=== PATIENT | male | born 1955 | race Caucasian/White ===

== ENCOUNTER → 2018-01-04 | Day surgery (SDC) | payer MEDICARE, MEDICAID ==
[~2018-01-04] MED LIST: LIDOCAINE HCL 1% 20ML VIAL (Pyxis) INJ ONE; SODIUM BICARBONATE 4% (2.4MEQ) 5ML VIAL IV ONE
== END | disposition home or self-care (01) ==
LOC: RAD 12:51
PROVIDERS: ATTEND Internal Medicine Endocrinology, Diabetes & Metabolism
DX: E07.9 Disorder of thyroid, unspecified (principal)
CPT/HCPCS: 10022; 76942; 88172; 88173; J3490

== ENCOUNTER → 2019-01-31 | Day surgery (SDC) | payer MEDICARE, MEDICAID | END | disposition home or self-care (01) | LOC: RAD 11:07 | PROVIDERS: ATTEND Internal Medicine Endocrinology, Diabetes & Metabolism | DX: E04.2 Nontoxic multinodular goiter (principal); Z79.899 Other long term (current) drug therapy | CPT/HCPCS: 10005; 10006; 88172; 88173; J3490 ==

== ENCOUNTER → 2020-11-28 | Outpatient (CLI) | payer MEDICARE, MEDICAID | END | disposition home or self-care (01) | LOC: NM 08:44 | PROVIDERS: ATTEND Internal Medicine Endocrinology, Diabetes & Metabolism | DX: E04.9 Nontoxic goiter, unspecified (principal) | CPT/HCPCS: 78014; A9516 ==

== ENCOUNTER 2021-09-05 18:17 | Inpatient (IN) | payer MEDICARE, MEDICAID ==
[~2021-09-05] VITALS: Ht 182.9 cm; Wt 113.4 kg
[2021-09-05] MEDS ORDERED: ALLO300T2 PO (18:39)
[2021-09-05] MEDS ORDERED: PRAZ1CAP5 PO (18:39)
[2021-09-05] MEDS ORDERED: NALO25TA4 PO (18:39)
[2021-09-05] MEDS ORDERED: ICOS1CAP PO (18:39)
[2021-09-05] MEDS ORDERED: ZOLPIDEM (18:39)
[2021-09-05] MEDS ORDERED: SERT-422 PO (18:39)
[2021-09-05] MEDS ORDERED: POTA-79 PO (18:39)
[2021-09-05] MEDS ORDERED: HYDR-4009 PO (18:39)
[2021-09-05] MEDS ORDERED: NEBI20TA2 PO (18:39)
[2021-09-05] MEDS ORDERED: FLUT16SP15 (18:39)
[2021-09-05] MEDS ORDERED: SERT25TA74 PO (18:39)
[2021-09-05] MEDS ORDERED: TADA20TA42 PO (18:39)
[2021-09-05] MEDS ORDERED: COLB (18:39)
[2021-09-05] MEDS ORDERED: DICY20TA2 PO (18:39)
[2021-09-05] MEDS ORDERED: PANT20TA17 PO (18:39)
[2021-09-05] MEDS ORDERED: FURO40TA5 PO (18:39)
[2021-09-05 23:36] LABS: BASOPHILS % 0.6 % (0.0-2.0); EOSINOPHILS % 1.9 % (0.0-5.0); HEMATOCRIT. 45.5 % (42.0-52.0); HEMOGLOBIN. 15.5 g/dL (14.0-18.0); LYMPHOCYTES % 39.9 % (20.0-50.0); MEAN CORPUSCULAR HEMOGLOBIN 31.4 pg (28.0-32.0); MEAN CORPUSCULAR VOLUME 91.9 fL (80.0-94.0); MEAN PLATELET VOLUME 9.5 fl (7.4-10.4); MONOCYTES % 7.8 % (2.0-8.0); NEUTROPHILS % 49.8 % (40.0-76.0); PLATELET 229 x1000/uL (130-400); RED BLOOD CELL COUNT 4.95 mill/uL (4.7-6.1); RED CELL DISTRIBUTION WIDTH 13.7 % (11.6-14.6)
[2021-09-05 23:50] LABS: CHLORIDE 107 mEq/L (98-107)
[2021-09-05 23:59] LABS: ETHANOL BLOOD < 10 mg/dL
[2021-09-06] MEDS ORDERED: MORPHINE SULFATE 4 MG/ML CPJ (NOT FOR IM USE) IV STA (02:05)
[2021-09-06] MEDS ORDERED: ONDANSETRON HCL 4MG/2ML INJ IV STA (02:05)
[2021-09-06] MEDS ORDERED: SODIUM CHLORIDE 0.9% 1,000 ML IV ONE (02:15)
[2021-09-06] MEDS ORDERED: MORPHINE SULFATE 4 MG/ML CPJ (NOT FOR IM USE) IV ONE (03:45)
[2021-09-06 03:54] LABS: CLARITY URINE CLEAR (CLEAR); COLOR URINE YELLOW (YELLOW); KETONES URINE 1+ (NEGATIVE); LEUKOCYTE ESTERASE URINE NEGATIVE (NEGATIVE); NITRITE URINE NEGATIVE (NEGATIVE); OCCULT BLOOD URINE NEGATIVE (NEGATIVE); PH URINE 5.5 (4.5-8.0); PROTEIN URINE NEGATIVE (NEGATIVE); SPECIFIC GRAVITY URINE 1.022 (1.005-1.030)
[2021-09-06 04:15] LABS: *AMPHETAMINES SCREEN URINE NEGATIVE (NEGATIVE); *BARBITURATES SCREEN URINE NEGATIVE (NEGATIVE); *BENZODIAZEPINES SCREEN URINE NEGATIVE (NEGATIVE); *COCAINE SCREEN URINE NEGATIVE (NEGATIVE); CANNABINOID URINE SCREEN PRESUMTIVE POSITIVE (NEGATIVE); METHADONE URINE SCREEN NEGATIVE (NEGATIVE); OPIATES URINE SCREEN PRESUMTIVE POSITIVE (NEGATIVE); PHENCYCLIDINE URINE SCREEN NEGATIVE (NEGATIVE)
[2021-09-06 10:00] VITALS: BP 173/93
[2021-09-06] MEDS ORDERED: DOCUSATE SODIUM 100MG CAPSULE PO PRN (10:15)
[2021-09-06] MEDS ORDERED: IPRATROPIUM/ALBUTEROL 0.5-3(2.5)MG/3ML NEB HHN PRN (10:15)
[2021-09-06] MEDS ORDERED: LORAZEPAM 0.5MG TABLET PO PRN (10:15)
[2021-09-06] MEDS ORDERED: ACETAMINOPHEN 325MG TABLET PO PRN ×2 (10:15)
[2021-09-06] MEDS ORDERED: NALOXONE HCL 0.4MG/ML VIAL IV PRN (10:45)
[2021-09-06] MEDS: SODIUM CHLORIDE 0.9% 1,000 ML IV SCH ×2 (11:00→21:06)
[2021-09-06] MEDS ORDERED: PANTOPRAZOLE 40MG DR TABLET PO SCH (11:00)
[2021-09-06 12:00] VITALS: BP 185/97
[2021-09-06] MEDS: ALLOPURINOL 300 MG TABLET PO SCH (13:00)
[2021-09-06] MEDS: CLONIDINE 0.1MG TABLET PO PRN ×2 (13:39→13:46)
[2021-09-06] MEDS: DICYCLOMINE HCL 20MG TABLET PO SCH ×3 (13:47→21:06)
[2021-09-06] MEDS ORDERED: BARIUM SULFATE 450ML ORAL SUSP PO SCH (14:00)
[2021-09-06] MEDS ORDERED: DIATR MEGLU/DIATRIZOATE SOLN 30ML PO SCH (14:15)
[2021-09-06] MEDS: NEBIVOLOL HCL 5 MG TABLET PO SCH (14:30)
[2021-09-06 16:00] VITALS: BP 156/87
[2021-09-06] MEDS: PRAZOSIN HCL 1MG CAPSULE PO SCH (16:37)
[2021-09-06 20:00] VITALS: BP 148/81
[2021-09-06] MEDS ORDERED: PRAZOSIN HCL 1MG CAPSULE PO SCH (21:00)
[2021-09-06] MEDS: SERTRALINE HCL 100MG TABLET PO SCH (21:06)
[2021-09-06] MEDS: ONDANSETRON HCL 4MG/2ML INJ IV PRN (22:46)
[2021-09-06] MEDS: HYDROCODONE/ACETAMINOPHEN 5/325MG TABLET PO PRN (23:05)
[2021-09-07] VITALS: BP 143/75
[2021-09-07 04:00] VITALS: BP 152/94
[2021-09-07] MEDS: SODIUM CHLORIDE 0.9% 1,000 ML IV SCH ×2 (07:03→17:34)
[2021-09-07 08:00] VITALS: BP 160/82
[2021-09-07] MEDS: PRAZOSIN HCL 1MG CAPSULE PO SCH ×2 (08:54→17:33)
[2021-09-07] MEDS: NEBIVOLOL HCL 5 MG TABLET PO SCH (08:56)
[2021-09-07] MEDS: DICYCLOMINE HCL 20MG TABLET PO SCH ×4 (08:56→21:56)
[2021-09-07] MEDS: PANTOPRAZOLE SODIUM 40 MG/VIAL IV SCH (08:57)
[2021-09-07] MEDS: ALLOPURINOL 300 MG TABLET PO SCH (09:00)
[2021-09-07 12:00] VITALS: BP 155/82
[2021-09-07] MEDS ORDERED: DIATR MEGLU/DIATRIZOATE SOLN 30ML PO SCH (13:30)
[2021-09-07 16:00] VITALS: BP 140/74
[2021-09-07 20:00] VITALS: BP 165/91
[2021-09-07] MEDS: CLONIDINE 0.1MG TABLET PO PRN (21:57)
[2021-09-07] MEDS: SERTRALINE HCL 100MG TABLET PO SCH (21:57)
[2021-09-07] MEDS: HYDROCODONE/ACETAMINOPHEN 5/325MG TABLET PO PRN (21:58)
[2021-09-07] MEDS ORDERED: IOHEXOL-300 100 ML BOTTLE ONE (22:21)
[2021-09-08 00:01] VITALS: BP 138/80
[2021-09-08] MEDS: ONDANSETRON HCL 4MG/2ML INJ IV PRN (00:33)
[2021-09-08] MEDS: SODIUM CHLORIDE 0.9% 1,000 ML IV SCH ×3 (02:44→21:20)
[2021-09-08 03:52] VITALS: BP 154/84
[2021-09-08 06:28] LABS: BASOPHILS % 0.9 % (0.0-2.0); EOSINOPHILS % 1.4 % (0.0-5.0); HEMATOCRIT. 40.5 % (42.0-52.0); HEMOGLOBIN. 14.2 g/dL (14.0-18.0); MEAN CORPUSCULAR HEMOGLOBIN 31.9 pg (28.0-32.0); MEAN PLATELET VOLUME 9.7 fl (7.4-10.4); NEUTROPHILS % 53.7 % (40.0-76.0); PLATELET 186 x1000/uL (130-400); RED BLOOD CELL COUNT 4.45 mill/uL (4.7-6.1); RED CELL DISTRIBUTION WIDTH 13.8 % (11.6-14.6)
[2021-09-08 06:34] LABS: INR 1.2; PROTHROMBIN TIME 12.3 sec (9.6-11.0)
[2021-09-08 07:10] LABS: CHLORIDE 109 mEq/L (98-107)
[2021-09-08 08:00] VITALS: BP 170/89
[2021-09-08] MEDS: PRAZOSIN HCL 1MG CAPSULE PO SCH ×2 (09:15→17:44)
[2021-09-08] MEDS: ALLOPURINOL 300 MG TABLET PO SCH (09:15)
[2021-09-08] MEDS: PANTOPRAZOLE SODIUM 40 MG/VIAL IV SCH (09:15)
[2021-09-08] MEDS: DICYCLOMINE HCL 20MG TABLET PO SCH ×4 (09:16→21:20)
[2021-09-08] MEDS: NEBIVOLOL HCL 5 MG TABLET PO SCH (09:16)
[2021-09-08 12:00] VITALS: BP 117/82
[2021-09-08] MEDS ORDERED: PROPOFOL 200MG/20ML VIAL IV ONE (15:45)
[2021-09-08] MEDS ORDERED: MIDAZOLAM HCL 2 MG/2 ML VIAL ONE (15:45)
[2021-09-08] MEDS ORDERED: ONDANSETRON HCL 4MG/2ML INJ ONE (15:46)
[2021-09-08] MEDS ORDERED: DEXAMETHASONE 4MG/ML 1ML VIAL ONE (15:46)
[2021-09-08 20:00] VITALS: BP 158/86
[2021-09-08] MEDS: SERTRALINE HCL 100MG TABLET PO SCH (21:20)
[2021-09-08] MEDS: HYDROCODONE/ACETAMINOPHEN 5/325MG TABLET PO PRN (22:20)
[2021-09-09 04:00] VITALS: BP 166/83
[2021-09-09 08:00] VITALS: BP 152/77
[2021-09-09] MEDS: PRAZOSIN HCL 1MG CAPSULE PO SCH ×2 (09:14→17:20)
[2021-09-09] MEDS: PANTOPRAZOLE SODIUM 40 MG/VIAL IV SCH (09:14)
[2021-09-09] MEDS: ALLOPURINOL 300 MG TABLET PO SCH (09:15)
[2021-09-09] MEDS: SODIUM CHLORIDE 0.9% 1,000 ML IV SCH ×2 (09:16→19:19)
[2021-09-09] MEDS: NEBIVOLOL HCL 5 MG TABLET PO SCH (09:16)
[2021-09-09] MEDS: DICYCLOMINE HCL 20MG TABLET PO SCH ×4 (09:16→21:16)
[2021-09-09 12:00] VITALS: BP 141/82
[2021-09-09 16:00] VITALS: BP 148/81
[2021-09-09 20:00] VITALS: BP 154/82
[2021-09-09] MEDS: SERTRALINE HCL 100MG TABLET PO SCH (21:16)
[2021-09-09] MEDS: HYDROCODONE/ACETAMINOPHEN 5/325MG TABLET PO PRN (21:17)
[2021-09-09] MEDS: CLONIDINE 0.1MG TABLET PO PRN (23:29)
[2021-09-10] VITALS: BP 172/88
[2021-09-10 04:00] VITALS: BP 163/93
[2021-09-10] MEDS: CLONIDINE 0.1MG TABLET PO PRN ×2 (05:49→13:26)
[2021-09-10] MEDS: SODIUM CHLORIDE 0.9% 1,000 ML IV SCH (05:50)
[2021-09-10 07:34] LABS: BASOPHILS % 0.5 % (0.0-2.0); EOSINOPHILS % 0.8 % (0.0-5.0); HEMATOCRIT. 41.4 % (42.0-52.0); HEMOGLOBIN. 14.5 g/dL (14.0-18.0); LYMPHOCYTES % 39.6 % (20.0-50.0); MEAN CORPUSCULAR HEMOGLOBIN 31.8 pg (28.0-32.0); MEAN CORPUSCULAR VOLUME 90.7 fL (80.0-94.0); MEAN PLATELET VOLUME 9.8 fl (7.4-10.4); MONOCYTES % 8.3 % (2.0-8.0); NEUTROPHILS % 50.8 % (40.0-76.0); PLATELET 195 x1000/uL (130-400); RED BLOOD CELL COUNT 4.57 mill/uL (4.7-6.1); RED CELL DISTRIBUTION WIDTH 13.7 % (11.6-14.6)
[2021-09-10 07:52] LABS: CHLORIDE 109 mEq/L (98-107)
[2021-09-10 08:00] VITALS: BP 197/108
[2021-09-10] MEDS: ALLOPURINOL 300 MG TABLET PO SCH (08:47)
[2021-09-10] MEDS: NEBIVOLOL HCL 5 MG TABLET PO SCH (08:47)
[2021-09-10] MEDS: DICYCLOMINE HCL 20MG TABLET PO SCH ×2 (08:47→13:26)
[2021-09-10] MEDS: PRAZOSIN HCL 1MG CAPSULE PO SCH (08:47)
[2021-09-10] MEDS: PANTOPRAZOLE SODIUM 40 MG/VIAL IV SCH (08:56)
[2021-09-10] MEDS ORDERED: POTASSIUM CHLORIDE 20MEQ TABLET SR PO NR (09:00)
[2021-09-10 12:00] VITALS: BP 172/91
[2021-09-10 13:30] VITALS: BP 172/59
== END 2021-09-10 13:39 | disposition home health service (06) | DRG 390 ==
LOC: ER 18:17 → 6EST 09-06 03:40 → ENRESERV 09-06 07:18 → 6EST 09-06 10:02
PROVIDERS: ADMIT Internal Medicine; ATTEND Internal Medicine
PROC: 0DB78ZX Excision of Stomach, Pylorus, Via Natural or Artificial Opening Endoscopic, Diagnostic (ICD-10-PCS; principal; 2021-09-08)
DX: K56.7 Ileus, unspecified (principal); K29.70 Gastritis, unspecified, without bleeding; K58.9 Irritable bowel syndrome, unspecified; I10 Essential (primary) hypertension; K57.30 Diverticulosis of large intestine without perforation or abscess without bleeding; E66.01 Morbid (severe) obesity due to excess calories; F32.A Depression, unspecified; M10.9 Gout, unspecified; K21.9 Gastro-esophageal reflux disease without esophagitis; N40.0 Benign prostatic hyperplasia without lower urinary tract symptoms; K76.89 Other specified diseases of liver; F43.10 Post-traumatic stress disorder, unspecified; E03.9 Hypothyroidism, unspecified; E78.00 Pure hypercholesterolemia, unspecified; Z20.822 Contact with and (suspected) exposure to COVID-19; N28.89 Other specified disorders of kidney and ureter; F17.210 Nicotine dependence, cigarettes, uncomplicated; Z96.659 Presence of unspecified artificial knee joint; N28.1 Cyst of kidney, acquired; Z90.49 Acquired absence of other specified parts of digestive tract; Z79.899 Other long term (current) drug therapy; Z68.33 Body mass index [BMI] 33.0-33.9, adult
CPT/HCPCS: 36415; 71045; 74018; 74176; 74177; 76700; 80048; 80053; 80305; 80320; 81003; 83735; 84100; 84443; 84484; 85025; 87426; 88305; 88312; 88313; 93005; 99285; C9113; J1100; J2250; J2270; J2405; J2704; J7030; Q9963; Q9967; G0480